=== PATIENT | female | born 1945 | race Caucasian/White ===

== ENCOUNTER 2018-05-01 10:46 | Outpatient (RCR) | payer MEDICARE ==
[~2018-05-01 10:46] MED LIST: AMLODIPINE5 MG PO; EC-81 ASPIRIN81 MG PO; LEVOTHYROXIN150 MCG PO; LISINOPRIL20 MG PO; METFORMIN500 MG PO; SIMVASTATIN10 MG PO; TERBINAFINE250 MG PO
[2018-05-13] MEDS ORDERED: ELIQUIS5 MG PO (13:40)
[2018-05-13] MEDS ORDERED: METOPROL TAR25 MG PO (13:42)
[2018-05-13] MEDS ORDERED: LASIX 20 MG TAB20 MG PO (13:52)
== END 2018-05-01 12:05 | disposition home or self-care (01) ==
LOC: CR 10:46
PROVIDERS: ATTEND Internal Medicine Cardiovascular Disease
DX: Z95.2 Presence of prosthetic heart valve (principal)

== ENCOUNTER 2019-02-05 09:36 | Emergency (ER) | payer MEDICARE ==
[~2019-02-05] VITALS: Ht 167.6 cm; Wt 120.0 kg
[~2019-02-05 09:36] MED LIST changes: +ELIQUIS5 MG PO; +LASIX 20 MG TAB20 MG PO; +METOPROL TAR25 MG PO
[2019-02-05] MEDS ORDERED: FLEXERIL PO (12:31)
[2019-02-05] MEDS ORDERED: NAPROXEN500 MG PO (12:31)
[2019-02-05 13:04] VITALS: BP 141/71
== END 2019-02-05 13:04 | disposition home or self-care (01) ==
LOC: ED 09:36
DX: M17.11 Unilateral primary osteoarthritis, right knee (principal); I10 Essential (primary) hypertension; E11.9 Type 2 diabetes mellitus without complications; Z96.652 Presence of left artificial knee joint; Z96.641 Presence of right artificial hip joint; Z79.84 Long term (current) use of oral hypoglycemic drugs

== ENCOUNTER 2022-06-01 02:52 | Observation (INO) | payer MEDICARE ==
[~2022-06-01] VITALS: Ht 165.1 cm; Wt 105.6 kg
[~2022-06-01 02:52] MED LIST changes: +ATORVASTATIN CA80 MG PO; +FLEXERIL PO; +LOPRESSOR25 MG PO; +NAPROXEN500 MG PO; +PERCOCET 10/31 COMBO PO; +SENNA REGULAR8.6 MG PO; +VALIUM2 MG PO
--- NOTE | 2022-06-01 03:15 | NUR ---
TO ROOM 6/AMBULATORY WITH WALKER.
[2022-06-01] MEDS ORDERED: D32000 UNIT PO (03:33)
[2022-06-01] MEDS ORDERED: FUROSEMIDE20 MG PO (03:33)
[2022-06-01] MEDS ORDERED: B121000 MC1 PO (03:34)
[2022-06-01] MEDS ORDERED: IRON325 M1 PO (03:35)
[2022-06-01 04:01] LABS: BASO% 0.2 % (0-3); EOS% 2.2 % (0-8); HEMATOCRIT 35.7 % (37.0-47.0); IMMATURE GRANULOCYTES 0.3 % (0.0-5.0); LYMPH% 14.5 % (15-41); MEAN CELL VOLUME 92.5 fL CALC (80.0-100.0); MEAN CORPUSCULAR HGB 28.5 pG CALC (26.0-32.0); MEAN CORPUSCULAR HGB CONC 30.8 g/dL CAL (32.0-36.0); MONO% 10.8 % (2-13); NEUT# 7.58 thou/uL (2.00-7.15); RED BLOOD COUNT 3.86 mill/uL (4.20-5.60); RED CELL DISTRI WIDTH 13.9 % (11.5-15.5)
[2022-06-01 04:18] LABS: ALKALINE PHOSPHATASE 114 u/l (38-126); ANION GAP 13 (6-22 (CALC)); BUN 24 mg/dL (8-23); BUN/CREATININE RATIO 25 (12-20 (CALC)); CARBON DIOXIDE 28 mmol/l (22-30); CHLORIDE 98 mmol/l (95-108); GFR FOR AFR.AMER. > 60 ML/MIN (>=60 (CALC)); GFR OTHER RACES 54 ML/MIN (>=60 (CALC)); LIPASE 82 u/l (23-300); POTASSIUM 4.1 mmol/l (3.5-5.1); SGOT/AST 24 u/l (9-36); SODIUM 135 mmol/l (137-146)
[2022-06-01 04:20] LABS: BILIRUBIN, TOTAL 0.8 mg/dL (0.02-1.3); TOTAL PROTEIN 7.1 g/dL (6.3-8.2)
--- NOTE | 2022-06-01 07:15 | NUR ---
Reassessment of patient completed. No distress noted. PATIENT AND REQUESTING PO FLUIDS, PROVIDED TO , EXPLAINED TO PATIENT SHE IS NPO. REQUESTED TO SPEAK WITH PROVIDER, PROVIDER NOTIFIED.
--- NOTE | 2022-06-01 07:18 | NUR ---
REPORT TO MARY. PT RESTING. WENT HOME. NAD.
--- NOTE | 2022-06-01 08:00 | NUR ---
PATIENT TRANSFERED TO [facility] ROOM 280 VIA STRETCHER, ALL BELONGINGS WITH PATIENT. VSS HAS NO COMPLAINTS AT THIS TIME.
[2022-06-01 08:13] VITALS: BP 134/58
--- NOTE | 2022-06-01 08:15 | NUR ---
PT ARRIVED TO FLOOR RECENTLY, PT ACCLAMATED TO ROOM. NO COMPLAINTS OR DISTRESS AT THIS TIME. WILL CONTINUYE TO MIONITOR.
[2022-06-01 09:12] LABS: URINE BILIRUBIN - DIPSTICK NEGATIVE (NEGATIVE); URINE BLOOD DIPSTICK TRACE-INTACT (NEGATIVE); URINE COLOR YELLOW; URINE GLUCOSE - DIPSTICK NEGATIVE (NEGATIVE); URINE KETONE NEGATIVE (NEGATIVE); URINE LEUK ESTERASE NEGATIVE (NEGATIVE); URINE PH 5.5 (4.5-8.0); URINE PROTEIN - DIPSTICK NEGATIVE (NEG-TRACE); URINE SPECIFIC GRAVITY <=1.005; URINE UROBILINOGEN - DIPSTICK 0.2 E.U./dL (0.2)
[2022-06-01 09:14] LABS: URINE NITRITE - DIPSTICK NEGATIVE (Negative)
--- NOTE | 2022-06-01 13:00 | NUR ---
PT LYING IN BED WATCHING TV. NO COMPAINTS. WILL CONTINUE TO MONITOR. AT BEDSIDE.
--- NOTE | 2022-06-01 13:39 | NUR ---
PT CONSENTED TO RECEIVE PNEUMOCOCCAL VACCINATION HOWEVER, PT HAS RECEIVED PCV13 AND PPSV23 AFTER TURNING 67 YO. NO INDICATION FOR RE-VACCINATION AT THIS TIME.
[2022-06-01 16:09] VITALS: BP 140/51
--- NOTE | 2022-06-01 17:00 | NUR ---
PT LYING IN BED, NO COMPLAINTS/DISTRESS. WILL CONTINUE TO MONITOR.
[2022-06-01 19:19] VITALS: BP 137/42
--- NOTE | 2022-06-01 20:02 | NUR ---
RECEVIED REPORT FROM DAYSHIFT NURSE. PT NOTED LAYING FOWLERS IN BED. PT IS A/OX3, DENIES ANY PAIN AT THIS TIME. DOES COMPLAIN OF SOME ABD TENDERNESS DURING ASSESSMENT. IV SITE APPEARS HEALTHY AND INTACT, FLUIDS RUNNING. EDUCATED PT ON PLAN OF CARE FOR TONIGHT. CALL LIGHT WITHIN REACH AND SAFETY PRECAUTIONS IN PLACE.
--- NOTE | 2022-06-02 | NUR ---
PT NOTED LAYING HIGH FOWLERS IN BED WATCHING TV AT THIS TIME. DENIES ANY PAIN. CALL LIGHT WITHIN REACH AND SAFETY PRECAUTIONS IN PLACE.
--- NOTE | 2022-06-02 04:48 | NUR ---
TOOK PT TO RESTROOM. PT AMBULATED WITH SLIGHT UNSTEADY GAIT. PT STATED THEY USE A WALKER AT HOME, PT DID JUST HAVE RT KNEE REPLACEMENT A FEW WEEKS AGO. PT WAS ABLE TO HAVE BM. ASSISTED WITH AMBULATING BACK INTO BED. PT DENIES ANY PAIN AT THIS TIME. CALL LIGHT WITHIN REACH AND SAFETY PRECAUTIONS IN PLACE.
[2022-06-02 04:55] VITALS: BP 118/42
[2022-06-02 06:11] LABS: BASO% 0.1 % (0-3); EOS% 4.6 % (0-8); HEMATOCRIT 30.9 % (37.0-47.0); HEMOGLOBIN 9.5 g/dl (12.0-16.0); LYMPH% 23.1 % (15-41); MEAN CELL VOLUME 92.8 fL CALC (80.0-100.0); MEAN CORPUSCULAR HGB 28.5 pG CALC (26.0-32.0); MEAN CORPUSCULAR HGB CONC 30.7 g/dL CAL (32.0-36.0); MONO% 10.4 % (2-13); NEUT# 4.28 thou/uL (2.00-7.15); NEUT% 61.8 % (42-76); RED BLOOD COUNT 3.33 mill/uL (4.20-5.60); RED CELL DISTRI WIDTH 13.9 % (11.5-15.5)
[2022-06-02 06:24] LABS: ALBUMIN 3.3 g/dL (3.2-5.0); ALKALINE PHOSPHATASE 83 u/l (38-126); ANION GAP 9 (6-22 (CALC)); BUN 11 mg/dL (8-23); BUN/CREATININE RATIO 15 (12-20 (CALC)); CARBON DIOXIDE 25 mmol/l (22-30); CHLORIDE 107 mmol/l (95-108); CREATININE 0.7 mg/dL (0.5-1.0); GFR FOR AFR.AMER. > 60 ML/MIN (>=60 (CALC)); GFR OTHER RACES > 60 ML/MIN (>=60 (CALC)); POTASSIUM 3.7 mmol/l (3.5-5.1); SGOT/AST 23 u/l (9-36); SODIUM 137 mmol/l (137-146)
[2022-06-02 06:27] VITALS: BP 144/53
[2022-06-02 06:36] LABS: BILIRUBIN, TOTAL 0.4 mg/dL (0.02-1.3)
--- NOTE | 2022-06-02 09:00 | NUR ---
PATIENT RESTING REPORTS FEELING BETTER. PATIENT IS HAVING LOOSE BM. PATIENT IS EATING AND DRINKING OKAY WITHOUT ANY ISSUES. SPOUSE AT BEDSIDE.
--- NOTE | 2022-06-02 12:00 | NUR ---
PATIENT RESTING PROVIDED ICE FOR HER KNEE SINCE SHE HAD SURGERY RECENTLY. PATIENT IS RESTING REPORTING NO PAIN AT THIS TIME STILL HAVING DIARRHEA. WILL CONTINUE TO MONITOR.
[2022-06-02 15:29] VITALS: BP 149/51
--- NOTE | 2022-06-02 18:01 | NUR ---
PATIENT IS RESTING. NO CHANGES AT THIS TIME.
[2022-06-02 19:00] VITALS: BP 151/48
[2022-06-02 19:22] VITALS: BP 151/48
--- NOTE | 2022-06-02 19:26 | NUR ---
RECEIVED REPORT FROM DAYSHIFT NURSE. PT NOTED SITTING UP HIGH FOWLERS IN BED, AT BEDSIDE. PT HAS ICE PACK ON RT KNEE FOR COMFORT. DENIES ANY PAIN AT THIS TIME. PT STATES STILL HAVING SOME DIARHHEA, DR AWARE OF TREND. EDUCATED PT ON ANTIBIOTICS AND SIDE EFFECTS. EDUCATED PT ON CONTINUED PLAN OF CARE FOR TONIGHT, CALL LIGHT WITHIN REACH AND SAFETY PRECAUTIONS IN PLACE.
--- NOTE | 2022-06-03 00:31 | NUR ---
PT NOTED LAYING FOWLERS IN BED, WATCHING TV. ANTIBIOTIC ADMINISTERED PER EMAR. DENIES ANY PAIN AT THIS TIME. CALL LIGHT WITHIN REACH AND SAFETY PRECAUTIONS IN PLACE.
[2022-06-03 04:00] VITALS: BP 139/38
--- NOTE | 2022-06-03 04:31 | NUR ---
TOOK PT TO RESTROOM AND ASSISTED WITH AMBULATING BACK INTO BED. PT DENIES ANY PAIN AT THIS TIME. CALL LIGHT WITHIN REACH AND SAFETY PRECAUTIONS IN PLACE.
[2022-06-03 04:49] VITALS: BP 139/38
[2022-06-03 05:29] LABS: HEMATOCRIT 30.5 % (37.0-47.0); HEMOGLOBIN 9.4 g/dl (12.0-16.0); MEAN CORPUSCULAR HGB 28.7 pG CALC (26.0-32.0); MEAN CORPUSCULAR HGB CONC 30.8 g/dL CAL (32.0-36.0); RED BLOOD COUNT 3.28 mill/uL (4.20-5.60); RED CELL DISTRI WIDTH 13.8 % (11.5-15.5)
[2022-06-03 05:56] LABS: ALBUMIN 3.1 g/dL (3.2-5.0); ALKALINE PHOSPHATASE 87 u/l (38-126); ANION GAP 10 (6-22 (CALC)); BILIRUBIN, TOTAL 0.3 mg/dL (0.02-1.3); BUN 9 mg/dL (8-23); BUN/CREATININE RATIO 12 (12-20 (CALC)); CARBON DIOXIDE 23 mmol/l (22-30); CHLORIDE 109 mmol/l (95-108); CREATININE 0.8 mg/dL (0.5-1.0); GFR FOR AFR.AMER. > 60 ML/MIN (>=60 (CALC)); GFR OTHER RACES > 60 ML/MIN (>=60 (CALC)); MAGNESIUM 1.9 mg/dL (1.6-2.3); POTASSIUM 3.8 mmol/l (3.5-5.1); SGOT/AST 23 u/l (9-36); SODIUM 138 mmol/l (137-146); TOTAL PROTEIN 5.5 g/dL (6.3-8.2)
[2022-06-03 06:19] VITALS: BP 143/44
[2022-06-03 10:26] VITALS: BP 141/52
[2022-06-03] MEDS ORDERED: METRONIDAZOLE500 MG PO (14:23)
[2022-06-03] MEDS ORDERED: CIPROFLOXACN500 MG PO (14:23)
--- NOTE | 2022-06-03 15:10 | NUR ---
Discharge instructions given. Patient verbalizes understanding of same. Discharged in stable condition via Wheelchair to Home with spouse. All belongings sent with pt.
== END 2022-06-03 15:13 | disposition home or self-care (01) ==
LOC: ED 02:52 → ED-I 03:50 → ED 03:50 → ED-I 06:10 → ED 06:23 → MS2 06:24 → ED 06:24 → MS2 06:24
PROVIDERS: Emergency Medicine; Internal Medicine; Nurse Practitioner Family; ADMIT Internal Medicine; ATTEND Internal Medicine
DX: K57.32 Diverticulitis of large intestine without perforation or abscess without bleeding (principal); I10 Essential (primary) hypertension; E11.9 Type 2 diabetes mellitus without complications; I48.91 Unspecified atrial fibrillation; E78.00 Pure hypercholesterolemia, unspecified; E03.9 Hypothyroidism, unspecified; Z85.118 Personal history of other malignant neoplasm of bronchus and lung; Z85.42 Personal history of malignant neoplasm of other parts of uterus; Z95.2 Presence of prosthetic heart valve; Z95.0 Presence of cardiac pacemaker; Z79.01 Long term (current) use of anticoagulants; Z79.84 Long term (current) use of oral hypoglycemic drugs; Z90.2 Acquired absence of lung [part of]; Z96.643 Presence of artificial hip joint, bilateral
CPT/HCPCS: Q9967

== ENCOUNTER 2022-09-02 23:19 | Emergency (ER) | payer MEDICARE ==
[~2022-09-02] VITALS: Ht 165.1 cm; Wt 85.0 kg
[~2022-09-02 23:19] MED LIST changes: +B121000 MC1 PO; +CIPROFLOXACN500 MG PO; +D32000 UNIT PO; +FUROSEMIDE20 MG PO; +IRON325 M1 PO; +METRONIDAZOLE500 MG PO
[2022-09-03 01:01] VITALS: BP 132/73
== END 2022-09-03 01:33 | disposition home or self-care (01) ==
LOC: ED 23:19
DX: S86.911A Strain of unspecified muscle(s) and tendon(s) at lower leg level, right leg, initial encounter (principal); M71.21 Synovial cyst of popliteal space [Baker], right knee; I10 Essential (primary) hypertension; E11.9 Type 2 diabetes mellitus without complications; X58.XXXA Exposure to other specified factors, initial encounter; Z79.84 Long term (current) use of oral hypoglycemic drugs